=== PATIENT | male | born 1930 | race Caucasian/White ===

== ENCOUNTER 2017-10-15 17:50 | Inpatient (IN) ==
[2017-10-15] MEDS: NS 1,000 ML IV SCH (14:49)
--- NOTE | 2017-10-15 15:10 | History & Physical Report ---
History of Present Illness Date: 10/15/17 Chief complaint: Abdominal pain, nausea vomiting HPI: Mr Fontaine is a pleasant 86-year-old male who presented to see his primary care provider, Jim at [facility] today for abdominal pain and nausea and vomiting. Outpatient chemistry panel was done, as well as KUB x-ray which did reveal questionable small bowel obstruction. Given ongoing nausea and vomiting, abdominal distention and findings of possible obstruction. The hospitalist services were contacted and accepted patient for direct admission to [facility] for further evaluation and treatment. He is seen on arrival to [facility]. He gives history of present illness. He reports that on Sunday started having what he thought was the flu as his has been sick recently also. He started with nausea and vomiting, which proceeded with diarrhea. These episodes were intermittent for the next 48 hours. Since yesterday. He has been having dry heaving and intermittent abdominal pain. No further episodes of bowel movements. On arrival, patient is afebrile, vital signs normal. Patient does report feeling abdominal distention with intermittent pain. Did discuss advanced directives. He does wish to be a full code. Review of Systems All systems PM: 10-point ROS was reviewed, no additional remarkable complaints except - Gastrointestinal Gastrointestinal: Present: as per HPI, abdominal pain, constipation, nausea, vomiting PFSH Patient Stated Medical History Diabetes Hypertension Peripheral neuropathy Congestive heart failure History of large pericardial effusion Hypothyroidism Reported history of bowel obstruction Macular degeneration Cataracts BPH Surgical History: Appendectomy- 2014 (Ashwini). Cataract Sx OU., Blepharasty. inguinal hernia repair(right)1984,. bowel obstruction 2006. laproscopic, 2015. gallbladder, 2016 Family History: Family History Mother HTN (hypertension) - Social History Smoking status: Former smoker (50 yrs ago) Substance use type: does not use Social history: Resides currently at home with his . Primary care provider at [facility], Ivette Lynn APRN Medications Home Medications Medication Instructions Recorded Confirmed Type Gabapentin 900 mg PO HS #0 10/14/13 10/15/17 History Losartan Potassium 150 mg PO DAILY #0 10/14/13 10/15/17 History Lutein 6 mg PO DAILY #0 10/14/13 10/15/17 History Gabapentin 600 cap PO TWICEDAILY #0 cap 04/30/15 10/15/17 History Rosuvastatin [Crestor] 2.5 mg PO HS #0 tab 04/30/15 10/15/17 History GlipiZIDE [Glucotrol] 2.5 mg PO DAILY 05/04/17 10/15/17 History Levothyroxine Tab [Synthroid] 100 mcg PO DAILY 05/04/17 10/15/17 History Sennosides/Docusate Sodium [Stool 1 each PO PRN PRN 05/04/17 10/15/17 History Softener Tablet] Allergies Allergy/AdvReac Type Severity Reaction Status Date / Time atorvastatin [From Lipitor] Allergy Verified 10/15/17 15:04 metformin Allergy Verified 10/15/17 15:04 pravastatin Allergy Verified 10/15/17 15:04 Exam Vital Signs: Temperature 96.5 F L 10/15/17 13:31 Pulse Rate 80 10/15/17 13:31 Respiratory Rate 18 10/15/17 13:31 Blood Pressure 148/61 H 10/15/17 13:31 Pulse Oximetry 96 10/15/17 13:31 Height/Weight/BMI: Height 1.85 m Weight 117 kg Body Mass Index 34.0 - Constitutional Present: no acute distress, well nourished, well developed - Routine HEENT Exam Eye: Present: EOMI ENT: Present: mucous membranes moist, dentition normal - Routine Respiratory Exam Present: CTA bilaterally. Absent: wheezes - Routine Cardiovascular Exam Present: RRR, S1, S2. Absent: murmur - Routine Abdominal Exam Present: tenderness, distended. 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 Will change to inpatient at time of examination. Patient is admitted under care of Dr. Burnett covering for the hospitalist services. Recheck laboratory studies CBC, CMP, LDH, urinalysis. IV hydration started at 100ml/hr. She does have an and acute kidney injury as creatinine is 2.7 on day of admission. Baseline creatinine from approximately 6 months ago was 1.0. Will obtain urine sodium and urine creatinine to calculate FENA- suspect this is prerenal hypovolemia Given abdominal distention will make NPO and place NG tube to LIS. Call consultation placed to Dr. Ashwini Gao as needed for nausea and vomiting Monitor BGMs Does wish to be a full code and this orders written Will discuss further plan of care with attending, Dr Burnett Michael Burnett MD Pt evaluated with Chandni Valladares APRN. Onset of abd pressure and distention noted by last night. Diarrhea yesterday with episode of vomiting and continual burping. No fever. Did not eat today due to "fullness". He has had one previous episode of bowel obst requiring an NGT, approx 15 years ago. PMHx, Meds, All, Soc and Surg Hx reviewed as above. 10 sys rev and neg except as noted. Phys Exam CV-RRR, no mur Lungs - CTA ABD - hypertonic bowel sounds, distended, slightly tender diffusely. Ext-- no cce Labs reviewed. ASSESSMENT Elevated Lipase SBO vs illeus Dehydration Acute renal insufficiency DM HTN PLAN Initial labs hemolyzed. RPT labs IV hydration, place NGT, make NPO. Pain meds as needed. Zofran prn nausea. Surgical Consult. Follow in am. Michael Burnett MD. Hospital Course Summary Disclaimer: The visit summary below is not to be considered part of the above Progress Note. 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 Will change to inpatient at time of examination. Patient is admitted under care of Dr. Burnett covering for the hospitalist services. Recheck laboratory studies CBC, CMP, LDH, urinalysis. IV hydration started at 100ml/hr. She does have an and acute kidney injury as creatinine is 2.7 on day of admission. Baseline creatinine from approximately 6 months ago was 1.0. Will obtain urine sodium and urine creatinine to calculate FENA- suspect this is prerenal hypovolemia Given abdominal distention will make NPO and place NG tube to LIS. Call consultation placed to Dr. Ashwini Gao as needed for nausea and vomiting Monitor BGMs Does wish to be a full code and this orders written Will discuss further plan of care with attending, Dr Burnett 10/15/17 16:54 ASSESSMENT Elevated Lipase SBO vs illeus Dehydration Acute renal insufficiency DM HTN PLAN Initial labs hemolyzed. RPT labs IV hydration, place NGT, make NPO. Pain meds as needed. Zofran prn nausea. Surgical Consult. Follow in am. Michael Burnett MD
--- NOTE | 2017-10-15 16:00 | General Surgery Consult Note ---
Consult date: 10/15/17 Attending Physician: Michael Burnett MD Reason for consult: abdominal pain (possible SBO) [facility] Patient Stated Medical History Peripheral Neuropathy Yes Cataracts Yes: Removed in 2004 Macular Degeneration Yes: right eye Hypertension Yes Diabetes Mellitus Type 2 Yes Obstructive Bowel Yes: resolved on its own Anesthesia Reactions Yes: post appendectomy Clinic Medical History (Last Updated 10/04/17 @ 08:52 by Linda Galeana) Abdominal pain (Acute Medical) Adult hypothyroidism (Acute Medical) Congestive heart failure (Acute Medical) Diabetes (Acute Medical) Diabetic neuropathy (Acute Medical) HTN (hypertension) (Acute Medical) Peripheral neuropathy (Acute Medical) Acute cholecystitis (Inactive Medical) Surgical History: Appendectomy- 2014 (Ashwini). Cataract Sx OU., Blepharasty. inguinal hernia repair(right)1984,. bowel obstruction 2006. laproscopic, 2014. gallbladder, 2016 Family History: Family History (Last Updated 10/09/17 @ 08:53 by Linda Galeana) Unknown No problems noted. Mother HTN (hypertension) - Social History Smoking status: Former smoker (50 yrs ago) Household members: spouse Medications Home Medications Medication Instructions Recorded Confirmed Type Gabapentin 900 mg PO HS #0 10/14/13 10/15/17 History Losartan Potassium 150 mg PO DAILY #0 10/14/13 10/15/17 History Lutein 6 mg PO DAILY #0 10/14/13 10/15/17 History Gabapentin 600 cap PO TWICEDAILY #0 cap 04/30/15 10/15/17 History Rosuvastatin [Crestor] 2.5 mg PO HS #0 tab 04/30/15 10/15/17 History GlipiZIDE [Glucotrol] 2.5 mg PO DAILY 05/04/17 10/15/17 History Levothyroxine Tab [Synthroid] 100 mcg PO DAILY 05/04/17 10/15/17 History Sennosides/Docusate Sodium [Stool 1 each PO PRN PRN 05/04/17 10/15/17 History Softener Tablet] Allergies Allergy/AdvReac Type Severity Reaction Status Date / Time atorvastatin [From Lipitor] Allergy Verified 10/15/17 15:04 metformin Allergy Verified 10/15/17 15:04 pravastatin Allergy Verified 10/15/17 15:04 Review of Systems 10-point ROS: negative except for HPI and the following: - Respiratory Respiratory: Present: difficulty breathing (with exertion) - Gastrointestinal Gastrointestinal: Present: nausea, diarrhea, vomiting - Genitourinary Additional comments: BPH - Neurological Neurological: Present: numbness (diabetic neuropathy) - Endocrine Endocrine: Present: diabetes, thyroid problems - Vital Signs Last Vital Signs Temp 96.5 F L 10/15/17 13:31 Pulse 80 10/15/17 13:31 Resp 18 10/15/17 13:31 BP 148/61 H 10/15/17 13:31 Pulse Ox 96 10/15/17 13:31 - Laboratory Result Diagrams: 10/15/17 15:00 10/15/17 15:00 General Surgery Results - Results Labs: 10/15/17 15:00 10/15/17 15:00 Hospital Course Summary Disclaimer: The visit summary below is not to be considered part of the above Progress Note.
--- NOTE | 2017-10-15 17:34 | CT Scan Report ---
EXAM: CT abdomen pelvis wo con HISTORY: abd pain, distention COMPARISON: Prior CT scan of the abdomen and pelvis dated 05/04/2017 PROCEDURE: Axial images were obtained throughout the entire abdomen and pelvis without contrast administration. Coronal and sagittal reconstruction imaging was utilized. The current CT scan was performed using radiation dose-reduction techniques. FINDINGS: LUNG BASES: There is a chronic small left pleural fluid collection with subjacent atelectasis at the left lung base. There is also a chronic small pericardial effusion. The heart is mildly enlarged. LIVER: Normal size showing no discrete lesions on this unenhanced exam. SPLEEN: Normal size showing no discrete lesions on this unenhanced exam. GALLBLADDER: Surgically absent. PANCREAS: No focal enlargement, ductal dilatation or peripancreatic fluid. There is no evidence to suggest acute pancreatitis. ADRENAL GLANDS: Not enlarged. KIDNEYS: The kidneys are mildly atrophic showing no evidence of hydronephrosis, nephrocalcinosis, hydroureter or ureterolith.. VASCULAR: The abdominal aorta and IVC are normal caliber. Moderate scattered plaque formation is seen in the abdominal aorta and iliac arteries. LYMPH NODES: No abdominal pelvic adenopathy. STOMACH BOWEL LOOPS: The stomach is dilated and is filled with ingested fluid. There are multiple dilated fluid-filled loops of small bowel with associated air-fluid levels but no bowel wall thickening or bowel wall air. The dilated small bowel extends throughout the abdomen into the right lower quadrant in the region of the distal small bowel where a transition zone is visualized just proximal to the terminal ileum. Postsurgical changes are seen in this region and the etiology of the small bowel obstruction may be due to adhesions. The colon is decompressed showing air-fluid levels in the ascending colon. Postsurgical changes are seen at the base of the cecum which may be due to prior surgical removal of the appendix. A few scattered diverticula are seen along the course of the descending and sigmoid colon without evidence of diverticulitis. URINARY BLADDER: No filling defects or wall thickening. There is mass effect on the base of the bladder by the enlarged prostate gland. PROSTATE: The prostate gland is enlarged similar to the prior exam measuring 9 cm in its maximum dimension. OSSEOUS STRUCTURES: Stable showing moderately advanced degenerative lumbar spondylosis and degenerative changes in the bony pelvis. No acute fractures or focal destructive lesions are identified. PERITONEAL CAVITY: No free air or free fluid. There are mild edematous changes in the root of the mesentery this is unchanged on the prior exam. ABDOMINAL WALL: Small bilateral fat-containing inguinal hernias with evidence for repair of the right inguinal hernia. IMPRESSION: 1. Findings are consistent with high-grade distal small bowel obstruction. The transition zone is in the right lower quadrant probably just proximal to the terminal ileum. Postsurgical changes are seen in this region and the etiology of the small bowel obstruction may be due to adhesions. 2. No free air or free fluid. There is" jorge" appearance of the mesenteric root which is unchanged from the prior examination may be related to the chronic mesenteritis. 3. Chronic small left pleural effusion with subjacent atelectasis or infiltrate in the left lower lobe. 4. Chronic small pericardial effusion. 5. Stable prostamegaly. A preliminary report was called to Chandni Valladares APRN immediately following the initial review this examination 10/15/2017 at 5:15 PM. .
[~2017-10-15 17:50] MED LIST: MORPHINE SULFATE 2mg INJECTION IVP PRN; ONDANSETRON 4 MG/2 ML INJECTION IVP PRN
--- NOTE | 2017-10-15 18:26 | Consultation ---
DATE OF CONSULTATION 10/15/2017 FINDINGS Mr. Fontaine is an 86-year-old gentleman whom I was asked to see today as a result of his history for nausea, vomiting and abnormal radiographic evaluation revealing evidence for small bowel obstruction. Patient states that he started "not feeling well" on Sunday, about two to three days ago. Patient states that he had no appetite which is very unusual for him. Patient states that as the day progressed he began to have "dry heaves." Patient states on Sunday he actually had several loose stools/diarrhea. As the weekend progressed his bowel activity "came to a halt." Patient states that he began to notice that his abdomen was beginning to "swell." He denied much in the way of any history for severe abdominal pain but stated that he did feel "uncomfortable." He continued to have ongoing nausea, vomiting and increasing abdominal discomfort and presented to our emergency room facility today for further evaluation. Upon questioning the patient he states that about eight years ago he had developed a small bowel obstruction that was managed conservatively. He states that the "bowel obstruction when away on its own." In regards to his prior surgical history, he has undergone prior laparoscopic cholecystectomy as well as prior laparoscopic appendectomy. He denies noticing any type of "bulge" within the inguinal region. PAST MEDICAL HISTORY, PAST SURGICAL HISTORY, MEDICATIONS, ALLERGIES, SOCIAL HISTORY, FAMILY HISTORY, REVIEW OF SYSTEMS Performed by my nurse practitioner, Thor Levin APRN. PHYSICAL EXAM GENERAL: Mr. Fontaine is an 86-year-old gentleman who this evening did not appear to be in acute distress. He was upright and quite conversant. VITAL SIGNS: Temperature 96.5, pulse 80, respirations 18, blood pressure 148/61 , SAO2 96% on room air. HEENT: Normocephalic. Pupils are equally round and react to light and accommodation. CHEST: Clear to auscultation bilaterally. HEART: Regular rate and rhythm. Normal S1 and S2 without gallops, murmurs or clicks. ABDOMEN: Visualization of the abdomen does reveal it to be somewhat protuberant in nature, i.e., the patient does have a component of obesity. Palpation of the abdomen revealed it to be soft and completely nontender. There is no evidence for guarding or rebound. Palpation within the inguinal regions failed to reveal any palpable abnormalities, i.e., no evidence for incarcerated inguinal hernia. EXTREMITIES: Without clubbing, cyanosis, or edema. NEURO: Cranial nerves II-XII grossly intact. Patient is without focal motor or sensory deficits. LABORATORY/RADIOGRAPHIC EVALUATION The patient had a CBC upon admission and his white count was not elevated at 6.9. Hemoglobin is normal at 15.5. CMP was obtained and his BUN and creatinine were significantly elevated at 65.0 and 2.8, respectively. The patient likely has a component of prerenal azotemia as a result of his poor p.o. intake over the course of the last several days in conjunction with his history for diarrhea, nausea, and vomiting. KUB and upright did reveal evidence for possible small bowel obstruction. CT scan of the abdomen and pelvis was also been obtained. Dictated report is still pending but I did review the CT scan personally. Findings are consistent with that of a small bowel obstruction. The stomach was massively dilated as well as the proximal and mid small bowel. Distal small bowel loops do appear to be collapsed in nature. Again, findings are consistent with that of a small bowel obstruction. ASSESSMENT 86-year-old gentleman with probable small bowel obstruction. Patient without an acute surgical abdomen. PLAN I agree with the current management of this patient. NG was placed and a fair amount of bilious material has been aspirated from the stomach/upper intestinal tract. Nurse states that "two canisters were filled." I would run his IV fluids at somewhat of a moderate rate given his likely finding of prerenal azotemia. Given his history for diarrhea and the fact that he has had a history for C. difficile colitis in the past, will go ahead and obtain a Clostridium difficile toxin although I feel this is unlikely. Will reassess tomorrow morning with repeat lab work, KUB and upright and repeat physical examination. Likely tomorrow will proceed with Gastrografin small bowel follow- through. If contrast progresses will then DC NG and begin clear liquids. If, on the other hand, contrast fails to progress tomorrow will likely proceed tomorrow evening with exploratory laparotomy. EMILY
[2017-10-16] MEDS: NS 1,000 ML IV SCH ×3 (00:17→20:47)
--- NOTE | 2017-10-16 08:06 | General Surgery Progress Note ---
Subjective Patient reports: feels better (no nausea since NG was placed), flatus (passing a little flatus and had some liquid BM during the night.) Narrative: Denies abd pain. C-diff returned negative. - Vital Signs Last Vital Signs Temp 96.6 F L 10/16/17 07:33 Pulse 69 10/16/17 07:33 Resp 16 10/16/17 07:33 BP 120/49 10/16/17 07:33 Pulse Ox 92 10/16/17 07:33 - Laboratory Result Diagrams: 10/16/17 04:02 10/16/17 04:02 Laboratory Tests 10/15/17 20:31 Stl C. diff Tox B Gene Negative - Radiology KUB upright this am - dilated small bowel, report pending - Abnormal Exam Abdominal: obese, hypoactive bowel sounds - Normal Exam General: awake, alert, oriented, no acute distress Cardiovascular: regular rhythm, regular rate Respiratory: clear bilaterally, no labored breathing Abdominal: soft, no guarding, no rebound, non-tender Psychiatric: normal affect Assessment and Plan (1) Nausea & vomiting Current Visit: Yes Status: Acute Qualifiers: Vomiting type: unspecified (2) Abdominal pain Current Visit: Yes Status: Acute Qualifiers: Abdominal location: generalized Qualified Code(s): R10.84 - Generalized abdominal pain Plan: N/V have subsided since NG placed, have had 2000 ml out so far, only 200 on shiftman. Abd pain resolved, denies pain even with palpation. Had small liquid BM during the night. C-Diff negative. Hospital Course Summary Disclaimer: The visit summary below is not to be considered part of the above Progress Note. 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 Will change to inpatient at time of examination. Patient is admitted under care of Dr. Burnett covering for the hospitalist services. Recheck laboratory studies CBC, CMP, LDH, urinalysis. IV hydration started at 100ml/hr. She does have an and acute kidney injury as creatinine is 2.7 on day of admission. Baseline creatinine from approximately 6 months ago was 1.0. Will obtain urine sodium and urine creatinine to calculate FENA- suspect this is prerenal hypovolemia Given abdominal distention will make NPO and place NG tube to LIS. Call consultation placed to Dr. Ashwini Gao as needed for nausea and vomiting Monitor BGMs Does wish to be a full code and this orders written Will discuss further plan of care with attending, Dr Burnett 10/15/17 16:54 ASSESSMENT Elevated Lipase SBO vs illeus Dehydration Acute renal insufficiency DM HTN PLAN Initial labs hemolyzed. RPT labs IV hydration, place NGT, make NPO. Pain meds as needed. Zofran prn nausea. Surgical Consult. Follow in am. Michael Burnett MD
--- NOTE | 2017-10-16 08:37 | XRay Report ---
EXAM: XR KUB w upright DATE: 10/16/2017 5:00 AM Encounter: Subsequent INDICATION: possible SBO COMPARISON: Abdominal CT and radiographs of the previous day Technique: Upright and supine AP abdominal radiographs were obtained. Findings: Interval placement of an enteric tube with tip in the proximal stomach and distal side port in the region of the distal esophagus/GE junction. Dilated air-filled small bowel loops again noted, mildly improved from the previous examination. Mild colonic gas and stool suggesting some passage. No intraperitoneal free air. Cholecystectomy clips noted. No acute osseous abnormality identified. Degenerative spondylosis of the visualized spine. Left pleural effusion and basilar atelectasis within the visualized lung bases. Impression: 1. Interval placement of an enteric tube with tip in the proximal stomach and distal side port in the region of the distal esophagus/GE junction. 2. Improved but persistent small bowel obstruction. 3. Left pleural effusion and associated basilar relaxation atelectasis. .
[2017-10-16] MEDS ORDERED: DIATRIZOATE MEGLUMINE/SOD. (66%/10%) 120ml SOLN ONE (10:31)
--- NOTE | 2017-10-16 13:57 | Progress Note ---
DATE 10/16/2017 FINDINGS Mr. Fontaine today states that he is feeling better. He informs me that he did have a bowel movement last night. He states that he is now "urinating again." PHYSICAL EXAM VITAL SIGNS: Afebrile, normotensive. Last recorded vitals include temperature 96.6, pulse 69, respirations 16, blood pressure 120/49, SAO2 92% room air. HEENT: Normocephalic. Pupils are equally round and react to light and accommodation. CHEST: Clear to auscultation bilaterally. HEART: Regular rate and rhythm. Normal S1 and S2 without gallops, murmurs or clicks. ABDOMEN: Visualization of the abdomen still reveals it to be somewhat distended. Palpation of the abdomen, however, reveals it to be soft and completely nontender throughout. No evidence for guarding or rebound. LABORATORY/RADIOGRAPHIC EVALUATION The patient had a CBC and BMP obtained today. White count is 6.2. Hemoglobin is 14.1. BUN still remains elevated at 67.0. Creatinine has improved from 2.8 to 2.1. KUB and upright was obtained today. Findings were improved but persistent small bowel obstruction. ASSESSMENT An 86-year-old gentleman with possible small bowel obstruction. PLAN Gastrografin small bowel follow-through. It was my recommendation to the patient that we go ahead and proceed with a Gastrografin small bowel follow- through to document with more certainty whether or not we are dealing with that of a complete small bowel obstruction. If the contrast does progress through his GI tract we will DC NG and begin on liquids. If, on the other hand, contrast fails to progress will proceed with surgical intervention likely this evening. EMILY
--- NOTE | 2017-10-16 14:31 | Progress Note ---
<Chandni Valladares V - Last Filed: 10/16/17 14:23> - Date 10/16/17 Subjective: Mr Fontaine is seen today while resting in bed. His is at his bedside. He voices frustration with NPO and NG tube. He is in the middle of SBFT and is hopeful for "good news" later today. No current abdominal pain or nausea. Objective Vital signs: Temperature 96.6 F L 10/16/17 07:33 Pulse Rate 69 10/16/17 07:33 Respiratory Rate 16 10/16/17 07:33 Blood Pressure 120/49 10/16/17 07:33 Pulse Oximetry 92 10/16/17 07:33 Height/Weight/BMI: Height 1.85 m Weight 117 kg Body Mass Index 34.0 - Constitutional Present: no acute distress, well nourished, well developed - Routine HEENT Exam Eye: Present: EOMI ENT: Present: mucous membranes moist, dentition normal - Routine Respiratory Exam Present: CTA bilaterally. Absent: wheezes - Routine Cardiovascular Exam Present: RRR, S1, S2. Absent: murmur - Routine Abdominal Exam Present: tenderness (mild diffuse), distended - Routine Extremities Exam Present: no edema - Routine Back/Spine/Pelvis Exam Back/Spine: Present: full ROM - Routine Skin Exam Present: dry, warm - Routine Neurological Exam Present: alert, oriented X3, CN II-XII intact - Routine Lymphatic Exam Lymphatic: Absent: adenopathy - Routine Psychiatric Exam Present: normal affect Results - Labs CBC & Chem 7: 10/16/17 04:02 10/16/17 04:02 Assessment and Plan (1) Abdominal pain Current visit: Yes Status: Acute Assessment and Plan: Impression Abdominal pain- Concern for bowel obstruction Nausea Elevated Lipase- POA DAYANA- Care Navigator on arrival 2.8 (baseline 1.0) DM HTN Peripheral neuropathy Hyperlipidemia BPH Plan Awaiting for results of small bowel follow-through, which started this afternoon. This will determine ongoing plan of treatment. Appreciate Dr. Maradiaga's consultation for surgical evaluation and recommendations. Patient continues to be nothing by mouth with NG tube in place. Creatinine is trending down, down to 2.1 today. awaiting urine sample for urine sodium and urine creatinine Zofran as needed for nausea and vomiting Monitor BGMs- Home Glipizide on hold. Losartan also on hold given DAYANA. BP stable 120's Hospital Course Summary Disclaimer: The visit summary below is not to be considered part of the above Progress Note. Hospital Course: 10/15/17 Impression Abdominal pain- Concern for bowel obstruction Nausea Elevated Lipase- POA DAYANA- Care Navigator on arrival 2.8 (baseline 1.0) DM HTN Peripheral neuropathy Hyperlipidemia BPH Plan Initially patient is admitted as outpatient observation, however, giving findings of bowel obstruction. Will change to inpatient at time of examination. Patient is admitted under care of Dr. Burnett covering for the hospitalist services. Recheck laboratory studies CBC, CMP, LDH, urinalysis. IV hydration started at 100ml/hr. She does have an and acute kidney injury as creatinine is 2.7 on day of admission. Baseline creatinine from approximately 6 months ago was 1.0. Will obtain urine sodium and urine creatinine to calculate FENA- suspect this is prerenal hypovolemia Given abdominal distention will make NPO and place NG tube to LIS. Call consultation placed to Dr. Ashwini Gao as needed for nausea and vomiting Monitor BGMs Does wish to be a full code and this orders written Will discuss further plan of care with attending, Dr Burnett 10/15/17 16:54 ASSESSMENT Elevated Lipase SBO vs illeus Dehydration Acute renal insufficiency DM HTN PLAN Initial labs hemolyzed. RPT labs IV hydration, place NGT, make NPO. Pain meds as needed. Zofran prn nausea. Surgical Consult. Follow in am. Michael Burnett MD 10/16/17 -Plan Awaiting for results of small bowel follow-through, which started this afternoon. This will determine ongoing plan of treatment. Appreciate Dr. Maradiaga's consultation for surgical evaluation and recommendations. Patient continues to be nothing by mouth with NG tube in place. Creatinine is trending down, down to 2.1 today. awaiting urine sample for urine sodium and urine creatinine Zofran as needed for nausea and vomiting Monitor BGMs- Home Glipizide on hold. Losartan also on hold given DAYANA. BP stable 120's <Michael Burnett - Last Filed: 10/16/17 15:28> - Date 10/16/17 Objective Vital signs: Temperature 96.6 F L 10/16/17 07:33 Pulse Rate 69 10/16/17 07:33 Respiratory Rate 16 10/16/17 07:33 Blood Pressure 120/49 10/16/17 07:33 Pulse Oximetry 92 10/16/17 07:33 Height/Weight/BMI: Height 1.85 m Weight 117 kg Body Mass Index 34.0 Results - Labs CBC & Chem 7: 10/16/17 04:02 10/16/17 04:02 Assessment and Plan (1) Abdominal pain Current visit: Yes Status: Acute Assessment and Plan: Impression Abd pain, SBO vs illeus Elevated Lipase. Acute renal insufficiency DM HTN Dehydration. Plan NPO with NG in place. Pending small bowel follow through. This is the most pressing issue, currently and other issues may improve dramatically as bowel obs is resolved. Continue with iv hydration. Following Lipase to evaluate pancreatitis. Creat improving slightly. BUN still elevated despite ivf. Patient seen and evaluated today. Michael Burnett MD Hospital Course Summary Disclaimer: The visit summary below is not to be considered part of the above Progress Note.
--- NOTE | 2017-10-16 16:16 | XRay Report ---
EXAM: XR small bowel follow through DATE: 10/16/2017 12:00 AM ENCOUNTER: Subsequent HISTORY: small bowel obstruction COMPARISON: Abdominal radiographs of the same day, abdominal CT and radiographs of the previous day. TECHNIQUE: A routine small bowel follow-through was performed. Sequential overhead evaluation was performed. FINDINGS: Prior abdominal radiograph of the same day demonstrated a improving but persistent obstructive bowel gas pattern. SMALL BOWEL FOLLOW THROUGH FINDINGS: There is normal course and caliber of the duodenal sweep. The ligament of Treitz is seen to the left of the midline. Dilated bowel loops again noted again suggesting at least partial small bowel obstruction. Barium was slow to traverse the small bowel, however did eventually pass into the colon after four hours. The mucosal folds, caliber and position of the small bowel are unremarkable. No constant intraluminal filling defects or areas of stricture are seen. IMPRESSION: Delayed but eventual passage of enteric contrast into the colon after four hours excluding complete small bowel obstruction, with findings suggestive of partial/intermittent/resolving obstruction. .
[2017-10-16 23:51] VITALS: TEMP 96.4
[2017-10-17] MEDS: NS 1,000 ML IV SCH (06:46)
[2017-10-17 07:46] VITALS: BP 133/72; PULSE 74; RESP 18; O2SAT 95
--- NOTE | 2017-10-17 11:48 | Progress Note ---
DATE OF VISIT 10/17/2017 FINDINGS Mr. Fontaine was seen earlier this morning. He denied any element of abdominal pain. He states he has had numerous bowel movements throughout the evening and into this morning. He states, "I want to eat some real food." VITALS: Temperature 96.4, pulse 74, respirations 18, blood pressure 133/72, SaO2 95% on room air. HEENT: Normocephalic. Pupils are equal, round and reactive to light and accommodation. CHEST: Clear to auscultation bilaterally. HEART: Regular rate and rhythm. Normal S1 and S2 without gallops, murmurs or clicks. ABDOMEN: Palpation of the abdomen reveals it to be soft and completely nontender. No evidence for guarding or rebound. LABORATORY/RADIOGRAPH EVALUATION The patient had a CBC and BMP this morning. CBC was within normal limits. White count was 5.6. Hemoglobin is 13.2. BMP reveals marked improvement of his renal function. Creatinine is down to 1.2. BUN is 44. ASSESSMENT 86-year-old gentleman with partial small bowel obstruction that has resolved with conservative measures. PLAN Yesterday he did have a Gastrografin small bowel follow-through that did reveal contrast to progress through his small bowel and into his colon. NG was discontinued last night and he was begun on clear liquids. He does look quite well this morning. Will go ahead and advance diet as tolerated. I do believe the patient could be discharged later today if he continues to progress. [facility]
--- NOTE | 2017-10-17 12:39 | Progress Note ---
- Date 10/17/17 Subjective: Patient had full lunch including pieces of pizza and finish. He feels pretty good right now. No nausea, no vomiting. He does note stomach is rumbling. He did have bowel movement this morning. Objective Vital signs: Temperature 96.4 F L 10/16/17 23:50 Pulse Rate 74 10/17/17 07:43 Respiratory Rate 18 10/17/17 07:43 Blood Pressure 133/72 10/17/17 07:43 Pulse Oximetry 95 10/17/17 07:43 Rhythm: Normal Sinus Rhythm Height/Weight/BMI: Height 1.85 m Weight 116.7 kg Body Mass Index 34.0 - Constitutional Present: well nourished, well developed - Routine HEENT Exam Eye: Present: EOMI ENT: Present: mucous membranes moist, dentition normal - Routine Respiratory Exam Present: CTA bilaterally. Absent: wheezes - Routine Cardiovascular Exam Present: RRR. Absent: murmur - Routine Abdominal Exam Present: soft, normoactive bowel sounds, distended (moderately, but definitely improved from yesterday.). Absent: tenderness Results - Labs CBC & Chem 7: 10/17/17 04:30 10/17/17 04:30 Assessment and Plan (1) Abdominal pain Current visit: Yes Status: Acute Assessment and Plan: Impression Abd pain, SBO vs illeus Elevated Lipase. Acute renal insufficiency DM HTN Dehydration. Plan Diet was advanced with initial liquids being started last night. He tolerated lunch without any difficulty today. We'll reevaluate later this afternoon to consider discharge. Symptoms improving dramatically, therefore will not recheck a lipase as we would treat based on symptoms. Renal insufficiency also improving. Creatinine normalized Michael Burnett MD Hospital Course Summary Disclaimer: The visit summary below is not to be considered part of the above Progress Note. 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 Will change to inpatient at time of examination. Patient is admitted under care of Dr. Burnett covering for the hospitalist services. Recheck laboratory studies CBC, CMP, LDH, urinalysis. IV hydration started at 100ml/hr. She does have an and acute kidney injury as creatinine is 2.7 on day of admission. Baseline creatinine from approximately 6 months ago was 1.0. Will obtain urine sodium and urine creatinine to calculate FENA- suspect this is prerenal hypovolemia Given abdominal distention will make NPO and place NG tube to LIS. Call consultation placed to Dr. Ashwini Gao as needed for nausea and vomiting Monitor BGMs Does wish to be a full code and this orders written Will discuss further plan of care with attending, Dr Burnett 10/15/17 16:54 ASSESSMENT Elevated Lipase SBO vs illeus Dehydration Acute renal insufficiency DM HTN PLAN Initial labs hemolyzed. RPT labs IV hydration, place NGT, make NPO. Pain meds as needed. Zofran prn nausea. Surgical Consult. Follow in am. Michael Burnett MD 10/16/17 -Plan Awaiting for results of small bowel follow-through, which started this afternoon. This will determine ongoing plan of treatment. Appreciate Dr. Maradiaga's consultation for surgical evaluation and recommendations. Patient continues to be nothing by mouth with NG tube in place. Creatinine is trending down, down to 2.1 today. awaiting urine sample for urine sodium and urine creatinine Zofran as needed for nausea and vomiting Monitor BGMs- Home Glipizide on hold. Losartan also on hold given DAYANA. BP stable 120's
--- NOTE | 2017-10-17 15:41 | Discharge Summary ---
Discharge Information Date of admission: 10/15/17 17:50 Attending Physician: Michael Burnett MD Primary care physician: Ivette John APRN Consults: 10/15/17 15:39 Physician Consult [CONS] Routine Consulting Provider: John Maradiaga Reason For Exam: ?SBO Ordering Provider has Notified Brake Assembler: Yes - Discharge Diagnosis (1) Abdominal pain Status: Acute - Laboratory Labs: 10/17/17 04:30 10/17/17 04:30 - Radiology Radiology: 10/15/2017 CT abdomen and pelvis high-grade distal small bowel obstruction. No free air or free fluid. Chronic small left pleural effusion. Chronic small pericardial effusion. 10/16/2017 KUB NG tube placement and appropriate. History of Present Illness HPI: Mr Fontaine is a pleasant 86-year-old male who presented to see his primary care provider, Jim at [facility] today for abdominal pain and nausea and vomiting. Outpatient chemistry panel was done, as well as KUB x-ray which did reveal questionable small bowel obstruction. Given ongoing nausea and vomiting, abdominal distention and findings of possible obstruction. The hospitalist services were contacted and accepted patient for direct admission to [facility] for further evaluation and treatment. He is seen on arrival to [facility]. He gives history of present illness. He reports that on Sunday started having what he thought was the flu as his has been sick recently also. He started with nausea and vomiting, which proceeded with diarrhea. These episodes were intermittent for the next 48 hours. Since yesterday. He has been having dry heaving and intermittent abdominal pain. No further episodes of bowel movements. On arrival, patient is afebrile, vital signs normal. Patient does report feeling abdominal distention with intermittent pain. Did discuss advanced directives. He does wish to be a full code. Hospital Course This is a general summary of the patient's hospital course. For more details refer to the complete medical record. Hospital course: 10/15/17 Impression Abdominal pain- Concern for bowel obstruction Nausea Elevated Lipase- POA DAYANA- Commissioner [employer] on arrival 2.8 (baseline 1.0) DM HTN Peripheral neuropathy Hyperlipidemia BPH Plan Initially patient is admitted as outpatient observation, however, giving findings of bowel obstruction. Will change to inpatient at time of examination. Patient is admitted under care of Dr. Burnett covering for the hospitalist services. Recheck laboratory studies CBC, CMP, LDH, urinalysis. IV hydration started at 100ml/hr. She does have an and acute kidney injury as creatinine is 2.7 on day of admission. Baseline creatinine from approximately 6 months ago was 1.0. Will obtain urine sodium and urine creatinine to calculate FENA- suspect this is prerenal hypovolemia Given abdominal distention will make NPO and place NG tube to LIS. Call consultation placed to Dr. Ashwini Gao as needed for nausea and vomiting Monitor BGMs Does wish to be a full code and this orders written Will discuss further plan of care with attending, Dr Burnett 10/15/17 16:54 ASSESSMENT Elevated Lipase SBO vs illeus Dehydration Acute renal insufficiency DM HTN PLAN Initial labs hemolyzed. RPT labs IV hydration, place NGT, make NPO. Pain meds as needed. Zofran prn nausea. Surgical Consult. Follow in am. Michael Burnett MD 10/16/17 -Plan Awaiting for results of small bowel follow-through, which started this afternoon. This will determine ongoing plan of treatment. Appreciate Dr. Maradiaga's consultation for surgical evaluation and recommendations. Patient continues to be nothing by mouth with NG tube in place. Creatinine is trending down, down to 2.1 today. awaiting urine sample for urine sodium and urine creatinine Zofran as needed for nausea and vomiting Monitor BGMs- Home Glipizide on hold. Losartan also on hold given DAYANA. BP stable 120's Discharge Plan - Med Rec/Dispo Prescriptions: Continue Gabapentin 900 mg PO HS #0 Lutein 6 mg PO DAILY #0 Gabapentin 600 cap PO TWICEDAILY #0 cap Rosuvastatin [Crestor] 2.5 mg PO HS #0 tab Levothyroxine Tab [Synthroid] 100 mcg PO DAILY GlipiZIDE [Glucotrol] 2.5 mg PO DAILY Sennosides/Docusate Sodium [Stool Softener Tablet] 1 each PO PRN PRN PRN Reason: Constipation Losartan Potassium 150 mg PO DAILY #0 - Disposition 01 Discharged Home, Self-Care
--- NOTE | 2017-10-17 15:45 | Discharge Summary ---
Discharge Information Date of admission: 10/15/17 17:50 Attending Physician: Michael Burnett MD Primary care physician: Ivette John APRN Consults: 10/15/17 15:39 Physician Consult [CONS] Routine Consulting Provider: John Maradiaga Reason For Exam: ?SBO Ordering Provider has Notified Breading Machine Tender: Yes - Discharge Diagnosis (1) Abdominal pain Status: Acute - Laboratory Labs: 10/17/17 04:30 10/17/17 04:30 History of Present Illness HPI: Mr Fontaine is a pleasant 86-year-old male who presented to see his primary care provider, Jim at [facility] today for abdominal pain and nausea and vomiting. Outpatient chemistry panel was done, as well as KUB x-ray which did reveal questionable small bowel obstruction. Given ongoing nausea and vomiting, abdominal distention and findings of possible obstruction. The hospitalist services were contacted and accepted patient for direct admission to [facility] for further evaluation and treatment. He is seen on arrival to [facility]. He gives history of present illness. He reports that on Sunday started having what he thought was the flu as his has been sick recently also. He started with nausea and vomiting, which proceeded with diarrhea. These episodes were intermittent for the next 48 hours. Since yesterday. He has been having dry heaving and intermittent abdominal pain. No further episodes of bowel movements. On arrival, patient is afebrile, vital signs normal. Patient does report feeling abdominal distention with intermittent pain. Did discuss advanced directives. He does wish to be a full code. Objective Vital signs: Temperature 96.4 F L 10/16/17 23:50 Pulse Rate 74 10/17/17 07:43 Respiratory Rate 18 10/17/17 07:43 Blood Pressure 133/72 10/17/17 07:43 Pulse Oximetry 95 10/17/17 07:43 Rhythm: Normal Sinus Rhythm Height/Weight/BMI: Height 1.85 m Weight 116.7 kg Body Mass Index 34.0 - Constitutional Present: well nourished, well developed - Routine HEENT Exam Eye: Present: EOMI ENT: Present: mucous membranes moist, dentition normal - Routine Respiratory Exam Present: CTA bilaterally. Absent: wheezes - Routine Cardiovascular Exam Present: RRR. Absent: murmur - Routine Abdominal Exam Present: soft, normoactive bowel sounds, non distended. Absent: tenderness - Routine Extremities Exam Present: normal capillary refill - Routine Skin Exam Present: dry, warm - Routine Neurological Exam Present: alert, oriented X3, CN II-XII intact - Routine Lymphatic Exam Lymphatic: Absent: adenopathy - Routine Psychiatric Exam Present: normal affect Hospital Course This is a general summary of the patient's hospital course. For more details refer to the complete medical record. Patient was admitted 10/15/2017 with high-grade distal SBO versus incomplete SBO. Patient was made nothing by mouth and NG tube was placed. Over the next 24 hours, symptoms improved. Bowel sounds returned appropriate. She was started on clear liquids last night and advanced to full diet today. He is having appropriate bowel movements, no nausea or vomiting and no pain. He is being discharged to follow up with his primary care provider. 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 Will change to inpatient at time of examination. Patient is admitted under care of Dr. Burnett covering for the hospitalist services. Recheck laboratory studies CBC, CMP, LDH, urinalysis. IV hydration started at 100ml/hr. She does have an and acute kidney injury as creatinine is 2.7 on day of admission. Baseline creatinine from approximately 6 months ago was 1.0. Will obtain urine sodium and urine creatinine to calculate FENA- suspect this is prerenal hypovolemia Given abdominal distention will make NPO and place NG tube to LIS. Call consultation placed to Dr. Ashwini Gao as needed for nausea and vomiting Monitor BGMs Does wish to be a full code and this orders written Will discuss further plan of care with attending, Dr Burnett 10/15/17 16:54 ASSESSMENT Elevated Lipase SBO vs illeus Dehydration Acute renal insufficiency DM HTN PLAN Initial labs hemolyzed. RPT labs IV hydration, place NGT, make NPO. Pain meds as needed. Zofran prn nausea. Surgical Consult. Follow in am. Michael Burnett MD 10/16/17 -Plan Awaiting for results of small bowel follow-through, which started this afternoon. This will determine ongoing plan of treatment. Appreciate Dr. Maradiaga's consultation for surgical evaluation and recommendations. Patient continues to be nothing by mouth with NG tube in place. Creatinine is trending down, down to 2.1 today. awaiting urine sample for urine sodium and urine creatinine Zofran as needed for nausea and vomiting Monitor BGMs- Home Glipizide on hold. Losartan also on hold given DAYANA. BP stable 120's Time spent with patient: greater than 35 minutes Discharge Plan - Discharge Disposition Discharge Date: 10/17/17 Disposition: 01 Discharged Home, Self-Care *Condition: Stable Reason For Visit (Visit label in EMR): Dehydration,Ileus - Discharge Medications *Discharge Medications: Continue Gabapentin 900 mg PO HS #0 Lutein 6 mg PO DAILY #0 Gabapentin 600 cap PO TWICEDAILY #0 cap Rosuvastatin [Crestor] 2.5 mg PO HS #0 tab Levothyroxine Tab [Synthroid] 100 mcg PO DAILY GlipiZIDE [Glucotrol] 2.5 mg PO DAILY Sennosides/Docusate Sodium [Stool Softener Tablet] 1 each PO PRN PRN PRN Reason: Constipation Losartan Potassium 150 mg PO DAILY #0 - Discharge Packet/Instructions *Diet: as tolerated *Activity: as tolerated *Pain Management/Treatment: Gabapentin as currently dosed *Notify Physician if: abdominal distention, pain or vomiting. *During Business Hours Contact: office *After Business Hours Contact: hospital acid crane operator at [phone] *Pending Lab/Results: No Pending Lab - Referrals/Follow Up - Patient Handouts Attestation Narriative - Attestation Attestation Narrative: 10/17/17 15:43 Patient was seen by myself and dictated today.
[2017-10-17 16:04] VITALS: BMI 33.9
--- NOTE | 2017-10-18 15:39 | Right on Track Program ---
Right on Track Program Date of Discharge: 10/17/17 Home Medications: Home Medications Medication Instructions Recorded Confirmed Gabapentin 900 mg PO HS #0 10/14/13 10/15/17 Losartan Potassium 150 mg PO DAILY #0 10/14/13 10/15/17 Lutein 6 mg PO DAILY #0 10/14/13 10/15/17 Gabapentin 600 cap PO TWICEDAILY #0 cap 04/30/15 10/15/17 Rosuvastatin [Crestor] 2.5 mg PO HS #0 tab 04/30/15 10/15/17 GlipiZIDE [Glucotrol] 2.5 mg PO DAILY 05/04/17 10/15/17 Levothyroxine Tab [Synthroid] 100 mcg PO DAILY 05/04/17 10/15/17 Sennosides/Docusate Sodium [Stool 1 each PO PRN PRN 05/04/17 10/15/17 Softener Tablet] - Right on Track Program Call #1 Date: 10/18/17 Right on Track Program: 24 Hour Follow-Up Discharge Summary Received: Yes Care Plan Received: Yes Follow Up: Follow Up Appointment Scheduled Comments: Spoke with Mrs Fontaine today. She reports that Robi is doing great today. They understand discharge instructions. He is eating and drink without difficulty, bowels are moving regularly. She states that she no longer feels that they need to be on right on track and wish to discontinue further right on track appointments. - Problems (1) Abdominal pain Qualifiers: Abdominal location: generalized Qualified Code(s): R10.84 - Generalized abdominal pain Code(s): R10.9 - Unspecified abdominal pain Status: Acute
== END 2017-10-17 16:00 | disposition home or self-care (01) | DRG 389 ==
LOC: MED
PROVIDERS: ADMIT Family Medicine; ATTEND Family Medicine